=== PATIENT | female | born 1960 | race Caucasian/White ===

== ENCOUNTER 2016-09-09 04:57 | Inpatient (IN) | payer OTHER ==
--- NOTE | ~2016-09-09 | DS ---
Discharge Summary [facility] [address] [place]. [address] NAME: VICENTE MARROQUIN : 64 STATUS : DIS IN PAT#: [id number] AGE: 56 ADM/REG DATE : 09/09/16 MR#: [id number] REPORT SERV DATE: 09/15/16 DICTATED BY: LARRY BRONSON DATE: 09/15/16 REPORT STATUS : Draft TRANSCRIBED BY: MODL DATE: 09/15/16 ADMISSION DATE: 09/09/2016 DISCHARGE DATE: 09/15/2016 FINAL HOSPITAL DIAGNOSES: Right upper lobe pneumonia, suspect postobstructive pharyngitis, resolved; chronic kidney disease, stable; anemia; secondary to chronic kidney disease; hypertension; and schizophrenia. CONSULTATIONS: Pulmonary, Dr. Noe. PROCEDURES: As listed on interim summary with the addition of CT of the chest done on 09/13/2016, without contrast showing a mass in the apex, soft tissue mass anterior to the right pulmonary artery, with complete collapse of the anterior segment of the right upper lobe, some air bronchograms are present in the posterior segment. CURRENT PHYSICAL FINDINGS AND HISTORY OF PRESENT ILLNESS: Please see initial dictated H and P, as well as discharge summary by myself on 09/13/2016. This is an addendum to that dictation. The patient was to be discharged on 09/13/2016, however, followup chest x-ray showed no improvement of the right upper lobe pneumonia. Discharge was canceled and the patient was scheduled for a CT scan with the above findings noted. When it appeared the patient had an obstructive mass, Pulmonary was consulted, and Dr. Noe saw the patient on 09/14/2016, and was arranging a bronchoscopy with biopsy. I was notified on the morning of 09/15/2016, that the patient wished to leave and not wait on her procedure. I had a long talk with her in the presence of her nurse and could not convince her to stay for appropriate evaluation, I in no uncertain terms explained to her that there was a very high probability that this was an obstructive mass, there was a very high probability with her smoking history that it could be a cancerous neoplasm, and that further treatment beyond initial diagnosis was most likely needed. I also discussed with her the postobstructive nature and the high probability that her pneumonia would recur off antibiotics. Given this information, the patient was still unwilling to stay. She was pleasant and cooperative, but just did not want to stay. I discussed her situation with Lan Nixon, who identifies himself as her uncle, whom she will be staying with. His contact #[phone]. I explained also to him the high probability of her diagnoses, the need for appropriate followup, and the consequences of not treating, he voiced understanding. He stated he had no further questions and would assist her in getting appointments and appropriate followup, but he concurred with her ability to make the decision to leave, although, she does carry diagnosis of schizophrenia. The patient has not been combative, confused, shown any hallucinatory behavior, and I do feel she is competent to make whatever decision she chooses. However, since she is leaving in this manner, she was asked to sign out AMA which she agreed to do. To hopefully assist her in getting her appropriate follow up. I spoke to Dr. Noe, who will have his office contact her on Saturday at the above number to try and set up an outpatient bronchoscopy. Prescriptions were written 40, 20, 10 q.2 day prednisone taper, prescription for albuterol inhaler one puff t.i.d., iron 300 b.i.d., sodium bicarb 650 t.i.d., and Augmentin 500 b.i.d. to complete a seven-day course. She was not on any home medicines prior to admission. We will ask social worker to continue to assist her in getting out of the hospital. Follow up perhaps at the [facility] on Saturday, the Discharge Summary [address] [address] NAME: VICENTE MARROQUIN : 64 STATUS : DIS IN PAT#: [id number] AGE: 56 ADM/REG DATE : 09/09/16 MR#: [id number] REPORT SERV DATE: 09/15/16 DICTATED BY: LARRY BRONSON DATE: 09/15/16 REPORT STATUS : Draft TRANSCRIBED BY: DANY DATE: 09/15/16 patient had the opportunity to ask any questions, and all were answered to the best of our ability. TLF/RUPALL Larry Bronson M.D. / [id number] CC: Larry Bronson M.D.
--- NOTE | ~2016-09-09 | HP ---
History And Physical [id number] [place]. [address] NAME: VICENTE MARROQUIN : 64 STATUS : ADM Victor Manuel PAT#: [id number] AGE: 56 ADM/REG DATE : 09/09/16 MR#: [id number] REPORT SERV DATE: 09/09/16 DICTATED BY: MORTEZA GODINEZ DATE: 09/09/16 REPORT STATUS : Draft TRANSCRIBED BY: MODL DATE: 09/09/16 DATE OF ADMISSION: 09/09/2016 CHIEF COMPLAINT: Fevers, chills, and sore throat. HISTORY OF PRESENT ILLNESS: This is a 56-year-old lady with history of schizophrenia, hypertension, COPD, chronic kidney disease, and anemia presenting with fever, chills, and sore throat. Please note that the patient has history of schizo and the patient is an extremely poor historian. This H and P were formulated from history obtained from patient as well as from careful review of existing medical records. The patient reports that she has been ill for the past week or so. Especially over the past 2-3 days, the patient started developing sore throat along with cough and shortness of breath. [facility] and from there the patient was brought to the ER for further evaluation and care. In the ER, the patient was found to be afebrile and hemodynamically stable. The patient was actually stable on room air without requiring any additional oxygen. Initial lab evaluation revealed an acute on chronic kidney disease with creatinine of 3.7 whereas her baseline is 3.1. The patient was also found to have a white blood cell count of 16. Urinalysis was negative, but chest x-ray was positive for right upper lobe pneumonia. The patient's strep throat was also positive. The patient apparently also complained of some abdominal pain and nausea. The CT of the abdomen and pelvis was performed and that was negative. Internal Medicine consultation was requested for admission the patient for further evaluation and care. REVIEW OF SYSTEMS: The patient admits to having had fevers with chills. Otherwise, 14-point review of systems reviewed and negative other than mentioned above. MEDICATIONS: None. ALLERGIES: NKDA. PAST MEDICAL HISTORY: 1. 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 2. Hypertension. 3. COPD. 4. Chronic kidney disease with creatinine baseline of 3. 5. Anemia, multifactorial. PAST SURGICAL HISTORY: Bilateral tubal ligation. FAMILY HISTORY: Heart diseases. History And Physical [address] [address] NAME: VICENTE MARROQUIN : 64 STATUS : ADM Victor Manuel PAT#: [id number] AGE: 56 ADM/REG DATE : 09/09/16 MR#: [id number] REPORT SERV DATE: 09/09/16 DICTATED BY: MORTEZA GODINEZ DATE: 09/09/16 REPORT STATUS : Draft TRANSCRIBED BY: DANY DATE: 09/09/16 SOCIAL HISTORY: The patient apparently smokes about one pack per day. The patient otherwise consumes alcohol on occasion. The patient does not use any illicit drugs. The [facility] at [facility]. PHYSICAL EXAMINATION: VITAL SIGNS: Temperature 98.7, blood pressure 137/92, pulse 100, respiratory rate is 18, saturating 98% on room air. CONSTITUTIONAL: On physical exam, the patient is alert and oriented x3 with no focal neurologic deficits. GENERAL: The patient is awake, does not appear to be in acute distress, and she is cooperative. NECK: No JVD. No lymphadenopathy. Normal thyroid. CHEST: No midline sternotomy scar and no tenderness to palpation. LUNGS: Actually fairly clear to auscultation bilaterally. The patient is quite stable on room air with normal respiratory effort. CARDIOVASCULAR: The patient is borderline tachycardic, but otherwise, no murmurs, rubs, or gallops, and PMI is nondisplaced. ABDOMEN: Soft, nontender, with active bowel sounds and no organomegaly. EXTREMITIES: No edema. Normal distal pulses. No calf tenderness. SKIN: Clean, dry, warm, and intact. LABORATORY DATA: Sodium is 144, potassium 5.3, chloride 115, BUN 53, creatinine 3.74, glucose 92, calcium 8.8. White blood cell count is 16.1, hemoglobin 8.0, platelets 664.. Lactate was 0.6. LFTs are benign. Urinalysis was negative other than trace leukocyte esterase. Strep throat was actually positive. Chest x-ray shows a potential right upper lobe pneumonia. CT of the abdomen and pelvis was nonacute. ASSESSMENT: This is a 56-year-old lady with history of schizophrenia, hypertension, COPD, chronic kidney disease, amongst many other medical conditions, presenting with a strep throat as well as possible community-acquired pneumonia. 1. Strep throat. 2. Community-acquired pneumonia. 3. Schizophrenia. 4. Smoking. 5. Acute kidney injury on chronic kidney disease. 6. Hypertension. 7. COPD. 8. Anemia. PLAN: The plan is to admit the patient under telemetry monitoring. The patient will be given oxygen support and bronchodilator therapy. The patient will be empirically treated with Rocephin and Zithromax. The patient will also be given IV fluid resuscitation. In's and out's electrolytes, and renal function will be closely monitored as the patient is given fluid resuscitation. For smoking cessation, counseling was provided. Otherwise, for the rest of stable past medical conditions, including hypertension, schizophrenia, anemia et al, I will continue to monitor patient and treat as needed. Of note, the patient has not been on any medications at least for over the past year or so. Standard DVT prophylaxis. The History And Physical [address] [address] NAME: VICENTE MARROQUIN : 64 STATUS : ADM Victor Manuel PAT#: [id number] AGE: 56 ADM/REG DATE : 09/09/16 MR#: [id number] REPORT SERV DATE: 09/09/16 DICTATED BY: MORTEZA GODINEZ DATE: 09/09/16 REPORT STATUS : Draft TRANSCRIBED BY: DANY DATE: 09/09/16 patient is full code at this time. The patient does have a PCP to forward this H and P. Francine/DANY Morteza Godinez MD / [id number]
--- NOTE | ~2016-09-09 | CN ---
Consultation Report [facility] [address]. [address] NAME: VICENTE MARROQUIN : 64 STATUS : ADM IN [facility]#: [id number] AGE: 56 ADM/REG DATE : 09/09/16 MR#: [id number] REPORT SERV DATE: 09/14/16 DICTATED BY: PAVAN DENTON DATE: 09/14/16 REPORT STATUS : Draft TRANSCRIBED BY: MODHanh DATE: 09/14/16 CONSULTATION REPORT DATE OF CONSULTATION: Dear Dr. Yates: Thank you for requesting my opinion regarding evaluation and management of Ms Marroquin's right upper lobe lung mass. Ms Marroquin is a 56-year-old female who is homeless with a significant past medical history of schizophrenia, hypertension, COPD, chronic kidney disease, and anemia who originally admitted to [facility] on 09/09/2016. The patient was treated with antibiotic therapy including Rocephin and azithromycin and subsequent CT scan of the chest without contrast was performed on 09/14/2016, which demonstrates right upper lobe lung mass with a right hilar lung mass as well, right apical lung mass with a right hilar local regional mediastinal metastases, and postobstructive pneumonia. The patient states that she has significantly improved while an inpatient, but we have been asked to evaluate her for possible biopsy. The patient states that she has currently [id number] shortness of breath, well localized to the chest, nonradiating with no significant alleviating or exacerbating factors. ALLERGIES: NO KNOWN DRUG ALLERGIES. HOME MEDICATIONS: None. PAST MEDICAL HISTORY: 1. Schizophrenia. 2. Hypertension. 3. COPD. 4. Chronic kidney disease with baseline creatinine of 3. 5. Anemia, multifactorial. PAST SURGICAL HISTORY: Bilateral tubal ligation. FAMILY HISTORY: Heart disease. SOCIAL HISTORY: The patient smokes one pack per day for many years. She denies any significant alcohol or illicit drug abuse. [facility] at [facility]. PHYSICAL EXAMINATION: VITAL SIGNS: Afebrile, T-current of 98.2, pulse of 88, respiratory rate 18, 99%, and blood pressure 153/71. GENERAL: In no acute distress and able to communicate in full paragraphs at a time. HEENT: Normocephalic and atraumatic. Pupils are equal, round, and reactive to light and Consultation Report [facility] [address] [place]. [address] NAME: VICENTE MARROQUIN : 64 STATUS : ADM IN PAT#: [id number] AGE: 56 ADM/REG DATE : 09/09/16 MR#: [id number] REPORT SERV DATE: 09/14/16 DICTATED BY: PAVAN DENTON DATE: 09/14/16 REPORT STATUS : Draft TRANSCRIBED BY: MODL DATE: 09/14/16 accommodation. Posterior oropharynx is clear. NECK: No JVD. No LAD. Trachea midline. CARDIOVASCULAR: Regular rate and rhythm. S1 and S2 present. LUNGS: Diminished breath sounds at the right upper lobe and end-expiratory wheezes noted bilaterally. ABDOMEN: Nontender, nondistended, and soft. Positive bowel sounds. EXTREMITIES: No clubbing, cyanosis, or edema. SKIN: No new rashes, lesions, or ulcers. PSYCHIATRIC: Alert and oriented x3. Appropriate mood and affect. Appropriate insight and judgment. NEUROLOGIC: 5/5 strength in upper and lower extremities. Cranial nerves II through XII are intact. Gait not tested. DTRs not performed. LABORATORY DATA: The patient demonstrated white count of 12, hemoglobin of 8, and platelet count of 638. Chemistries demonstrated creatinine of 2.97. Negative microbiologic studies. IMAGING: Chest CT without contrast on 09/13/2016 was personally reviewed by me and I agree with the following interpretation, likely right upper lobe lung mass, right hilar mediastinal lymphadenopathy, highly suspicious for primary bronchogenic carcinoma and postobstructive pneumonia. ASSESSMENT AND PLAN: Ms Marroquin is a pleasant 56-year-old female who is homeless with a significant past medical history of heavy tobacco abuse, who presented with sore throat, fevers, chills, and was found to have on CT scan, however, large right upper lobe lung mass and right hilar adenopathy with a postobstructive pneumonia. The clinical and radiographic presentation is most consistent with multifactorial shortness of breath: 1. Concerning right upper lobe lung mass and right hilar adenopathy, most likely representing advanced stage primary bronchogenic carcinoma. 2. Postobstructive pneumonia. 3. Chronic obstructive pulmonary disease. 4. Active tobacco abuse. At this point, Ms Marroquin needs an appropriate diagnostic intervention. We discussed in detail potential options including EBUS and navigation by bronchoscopy, CT-guided needle biopsy, or thoracic surgical intervention. After careful discussion of the risks, benefits, and alternatives to each of these procedures, we agreed to proceed forward with EBUS bronchoscopy. However, I will not be on the service on Saturday when Dr. Devlin will be assuming the service. We will discuss options for biopsy and I will defer final decision to him. Thank you for allowing me to participate in Ms Marroquin's care. KB/DANY Consultation Report [address] [place]. [address] NAME: VICENTE MARROQUIN : 64 STATUS : ADM IN PAT#: [id number] AGE: 56 ADM/REG DATE : 09/09/16 MR#: [id number] REPORT SERV DATE: 09/14/16 DICTATED BY: PAVAN DENTON DATE: 09/14/16 REPORT STATUS : Draft TRANSCRIBED BY: DANY DATE: 09/14/16 Pavan Denton M.D. / [id number] CC: Juice Yates M.D.
--- NOTE | ~2016-09-09 | DS ---
Discharge Summary [facility] [address] [place]. [address] NAME: VICENTE MARROQUIN : 64 STATUS : ADM IN [facility]#: [id number] AGE: 56 ADM/REG DATE : 09/09/16 MR#: [id number] REPORT SERV DATE: 09/13/16 DICTATED BY: LARRY BRONSON DATE: 09/13/16 REPORT STATUS : Draft TRANSCRIBED BY: MODL DATE: 09/13/16 ADMISSION DATE: 09/09/2016 DISCHARGE DATE: 09/13/2016 FINAL HOSPITAL DIAGNOSES: 1. Right upper lobe pneumonia. 2. Pharyngitis. 3. Chronic kidney disease. 4. Anemia, secondary to chronic kidney disease. 5. Hypertension. 6. Schizophrenia. CONSULTATIONS: None. PROCEDURES: 1. TB test, PPD which was negative. 2. CT of the abdomen and pelvis done on 09/09/2016, showing no acute abnormality, scattered calcifications throughout the kidneys, not in the collecting system consistent with medical renal disease. No hydronephrosis. CURRENT PHYSICAL FINDINGS AND HISTORY OF PRESENT ILLNESS: Please see initial dictated H and P by Dr. Benson. In brief, the patient is a 56-year-old female, who presented with complaint of fevers, chills, and sore throat. Vital signs at time of admission, BP was 137/92. She has averaged 130s to 140s/70s. She had no fever at presentation, her T-max here has been 99.1, heart rates have been in the 80s, she has not required supplemental O2. LABORATORY DATA: Laboratory at the time of admission, creatinine was 3.74 with rehydration, and creatinine on the date of admission was 2.7, per her old records was from 2013 to 2015, it appears her baseline creatinine is between 3 and 4. No associated hyperkalemia. Her procalcitonin was 0.66. She did have some low bicarb dropping as low as 14 on her lab work, this responded with IV and p.o. replacement. Initial LFTs were slightly elevated with AST and ALT being 95 and 80 respectively, repeat were 39 and 54, and no significant abnormalities were noted on her CT, and lab work showed an iron deficiency with an iron of 13 and sat of 9%. However stool for occult blood x1 was negative. Hepatitis panel was nonreactive. Initial white count was 16,000, subsequent on 09/10/2016 were 13, and on 09/11/2016 12.4. Per her previous numbers from 2013 and 2015, it appears her baseline hemoglobin is approximately 8.5. She did have a 6.8 hemoglobin here on 09/10/2016, which was corrected with transfusion x1 unit packed cells. Legionella was negative and UA was negative. Urine chemistry was negative. Blood cultures are negative at four days. Throat culture was positive for strep. Sputum cultures have been poor quality. Chest x-ray showed a right upper lobe atelectasis versus infiltrate. HOSPITAL COURSE: The patient was admitted for pharyngitis, pneumonia, anemia, and chronic kidney disease. She was placed on Rocephin and Zithromax. IV fluids were given. The above labs and tests were done. She did not have any signs or symptoms of hypoxia or significant respiratory distress. Because of her homeless situation and upper lobe predominance a PPD Discharge Summary [address] [address] NAME: VICENTE MARROQUIN : 64 STATUS : ADM IN [facility]#: [id number] AGE: 56 ADM/REG DATE : 09/09/16 MR#: [id number] REPORT SERV DATE: 09/13/16 DICTATED BY: LARRY BRONSON DATE: 09/13/16 REPORT STATUS : Draft TRANSCRIBED BY: DANY DATE: 09/13/16 was done which was read by myself and negative. Sputum x3 were requested for AFB, but I believe it was not done due to the poor quality, but her PPD was negative. She did receive the one unit transfusion on 09/10/2016 without any difficulty or reaction. party planner was consulted for assistance which she is agreeable to. She was placed on p.o. bicarb on 09/10/2016. I took over her care on 09/11/2016. She was placed on p.o. iron. She was given some IV bicarb with some marked improvement in her bicarbonate numbers. She continued to do well on 09/12/2016 without any new problems. On reassessment on 09/13/2016, we will repeat her chest x-ray, if this shows improvement, she will be discharge. DISPOSITION: Discharge pending her x-ray. MEDICATIONS: She was given Augmentin 500 b.i.d. at the reduced renal doses for an additional three days to complete a seven-day course of treatment for the possible pneumonia and pharyngitis. She was given a prescription for iron b.i.d. and bicarb b.i.d. We will ask discharge planning to assist her with followup in the [facility]. She will need monitoring of her chronic anemia and chronic kidney disease. She is to return for any recurrent symptoms. DAI/DANY Larry Bronson M.D. / [id number] CC: Larry Bronson M.D.
[2016-09-09 02:05] LABS: BASOPHILS 0.2 %; BASOPHILS ABSOLUTE 0.04 10/3/uL (0.0-0.16); EOSINOPHILS 2.2 %; EOSINOPHILS ABSOLUTE 0.36 10/3/uL (0.0-0.53); HEMATOCRIT 25.6 % (36.0-48.0); IMMATURE GRANULOCYTES 1.5 %; IMMATURE GRANULOCYTES ABSOLUTE 0.24 10/3/uL (0.0-0.11); LYMPHOCYTES ABSOLUTE 1.12 10/3/uL (0.67-4.30); MANUAL DIFF NO %; MEAN CORPUS HGB CONC 31.3 g/dL (32.0-36.0); MEAN CORPUSCULAR HEMOGLOB 28.6 pg (26.0-34.0); MEAN CORPUSCULAR VOLUME 91.4 fL (80-100); MEAN PLATELET VOLUME 9.9 fL (9.2-13.0); MONOCYTES 4.9 %; MONOCYTES ABSOLUTE 0.78 10/3/uL (0.21-1.20); NEUTROPHILS 84.2 %; NEUTROPHILS ABSOLUTE 13.53 10/3/uL (2.02-8.40); PLATELET COUNT 664 10/3/uL (150-400); RBC DISTRIBUTION WIDTH 14.9 % (12.0-16.0); WHITE BLOOD CELLS 16.1 10/3/uL (4.5-10.5)
[2016-09-09 02:08] LABS: ASCORBIC ACID (UR NOT ORDER) NEG (NEG); BILIRUBIN, URINE NEGATIVE (NEG); ER URINALYSIS TAT 0 Hrs 07 Mins; KETONE, URINE NEGATIVE (NEG); LEUKOCYTE ESTERASE(NOT OR TRACE (NEG); NITRITE (URINE) NEG (NEG); WBC (NOT ORDERED) (RFLEX) 2 (0-5)
[2016-09-09 02:29] LABS: CALCIUM, SERUM 8.8 MG/DL (8.5-10.4); CHLORIDE, SERUM 115 MMOL/L (96-112); CO2 (CARBON DIOXIDE) 18 MMOL/L (24-34); GLUCOSE, SERUM 92 MG/DL (60-99); SGOT(AST) 95 U/L (5-40); SGPT(ALT) 80 U/L (5-65); SODIUM, SERUM 144 MMOL/L (135-148); TOTAL BILIRUBIN 0.3 MG/DL (0-1.2); TOTAL PROTEIN 7.3 G/DL (6.0-8.5)
[2016-09-09 02:33] LABS: A/G RATIO 0.4 (0.7-1.9); ALKALINE PHOSPHATASE 248 U/L (45-117); BUN (BLOOD UREA NITROGEN) 53 MG/DL (6-23); CREATININE 3.74 MG/DL (0.55-1.02); GFR AFRICAN AMERICAN 15 ML/MIN (>=60); GFR NON AFRICAN AMERICAN 13 ML/MIN (>=60); GLOBULIN 5.3 G/DL (2.5-4.1); POTASSIUM, SERUM 5.3 MMOL/L (3.5-5.3)
[2016-09-09 04:04] LABS: LACTATE 0.6 MMOL/L (0.3-2.4)
[~2016-09-09 04:57] MED LIST: AMILORID5B PO; CEFT2 PO; COG2 PO; ESKALITH PO; NEUR300 PO; NORV10 PO; POOR HISTORIAN; RISP3 PO; SEROQUEL1C PO; SEROQUEL400 MG PO; SODBICAR10 PO
[2016-09-09 09:38] LABS: PROCALCITONIN 0.66 ng/mL (<0.5)
[2016-09-09 10:19] LABS: AMPHETAMINES (NOT ORD) NEG (NEG); BARBITURATES (NOT ORDERED NEG (NEG); BENZODIAZEPINES (NOT ORD) NEG (NEG); CANNABINOIDS (THC) NEG (NEG); COCAINE (NOT ORDERED) NEG (NEG); OPIATES NEG (NEG); PHENCYCLIDINE(PCP) NEG (NEG); TRICYCLICS NEG (NEG)
[2016-09-10 05:41] LABS: % IRON SAT 9 % (20-50); A/G RATIO 0.3 (0.7-1.9); ALBUMIN 1.6 G/DL (3.5-5.0); CALCIUM, SERUM 8.5 MG/DL (8.5-10.4); CHLORIDE, SERUM 117 MMOL/L (96-112); CO2 (CARBON DIOXIDE) 16 MMOL/L (24-34); FERRITIN 337 NG/ML (8-252); GLOBULIN 4.9 G/DL (2.5-4.1); GLUCOSE, SERUM 103 MG/DL (60-99); IRON BINDING CAPACITY 139 MCG/DL (225-410); IRON, SERUM 13 MCG/DL (35-150); POTASSIUM, SERUM 4.9 MMOL/L (3.5-5.3); SGOT(AST) 39 U/L (5-40); SGPT(ALT) 54 U/L (5-65); SODIUM, SERUM 142 MMOL/L (135-148); TOTAL BILIRUBIN 0.4 MG/DL (0-1.2); TOTAL PROTEIN 6.5 G/DL (6.0-8.5)
[2016-09-10 05:42] LABS: BASOPHILS 0.2 %; BASOPHILS ABSOLUTE 0.03 10/3/uL (0.0-0.16); EOSINOPHILS ABSOLUTE 0.27 10/3/uL (0.0-0.53); IMMATURE GRANULOCYTES 1.6 %; IMMATURE GRANULOCYTES ABSOLUTE 0.22 10/3/uL (0.0-0.11); LYMPHOCYTES ABSOLUTE 1.08 10/3/uL (0.67-4.30); MEAN CORPUS HGB CONC 30.2 g/dL (32.0-36.0); MEAN CORPUSCULAR HEMOGLOB 27.3 pg (26.0-34.0); MEAN CORPUSCULAR VOLUME 90.4 fL (80-100); MEAN PLATELET VOLUME 9.3 fL (9.2-13.0); MONOCYTES 6.2 %; MONOCYTES ABSOLUTE 0.83 10/3/uL (0.21-1.20); NEUTROPHILS ABSOLUTE 10.99 10/3/uL (2.02-8.40); PLATELET COUNT 605 10/3/uL (150-400); RBC DISTRIBUTION WIDTH 15.3 % (12.0-16.0); RED CELL COUNT 2.49 10/6/uL (4.0-5.6); WHITE BLOOD CELLS 13.4 10/3/uL (4.5-10.5)
[2016-09-10 05:43] LABS: ALKALINE PHOSPHATASE 211 U/L (45-117); BUN (BLOOD UREA NITROGEN) 43 MG/DL (6-23); CREATININE 3.24 MG/DL (0.55-1.02); GFR AFRICAN AMERICAN 18 ML/MIN (>=60); GFR NON AFRICAN AMERICAN 15 ML/MIN (>=60); HEMATOCRIT 22.5 % (36.0-48.0); HEMOGLOBIN 6.8 g/dL (12.0-16.0)
[2016-09-10 05:44] LABS: MANUAL DIFF NO %
[2016-09-10 08:45] LABS: HEPATITIS B SURFACE ANTIGEN NON-REACTIVE (NON-REACT)
[2016-09-10 09:05] LABS: HEPATITIS C ANTIBODY NON-REACTIVE (NON-REACT)
[2016-09-10 09:06] LABS: HEPATITIS B CORE AB IGM NON-REACTIVE (NON-REAC)
[2016-09-10 09:08] LABS: HEP A ANTIBODY IGM NON-REACTIVE (NON-REACT)
[2016-09-10 11:49] LABS: BE (BASE EXCESS) -11.7 MEQ/L (0 +/- 2.5); CARBOXYHEMOGLOBIN 0.6 % (0-3); HCO3 (ACTUAL BICARBONATE) 13.9 MEQ/L (23-27); HEMOBLOGIN CONTENT 8.7 G/DL (12-16); INSTRUMENT SERIAL # 8083; METHEMOGLOBIN 0.2 % (0-3); O2 CONTENT 11.9 VOL% (18-24); PCO2 (CO2 TENSION) 30 MMHG (35-45); PO2 (O2 TENSION) 89 MMHG (79-93); SAMPLE Arterial; pH 7.28 (7.37-7.43)
[2016-09-11 05:29] LABS: BASOPHILS 0.3 %; BASOPHILS ABSOLUTE 0.04 10/3/uL (0.0-0.16); EOSINOPHILS 2.1 %; EOSINOPHILS ABSOLUTE 0.26 10/3/uL (0.0-0.53); HEMATOCRIT 26.8 % (36.0-48.0); HEMOGLOBIN 8.5 g/dL (12.0-16.0); IMMATURE GRANULOCYTES ABSOLUTE 0.25 10/3/uL (0.0-0.11); LYMPHOCYTES 7.3 %; MEAN CORPUS HGB CONC 31.7 g/dL (32.0-36.0); MEAN CORPUSCULAR HEMOGLOB 28.6 pg (26.0-34.0); MEAN CORPUSCULAR VOLUME 90.2 fL (80-100); MEAN PLATELET VOLUME 9.4 fL (9.2-13.0); MONOCYTES 8.6 %; MONOCYTES ABSOLUTE 1.07 10/3/uL (0.21-1.20); NEUTROPHILS 79.7 %; NEUTROPHILS ABSOLUTE 9.86 10/3/uL (2.02-8.40); PLATELET COUNT 638 10/3/uL (150-400); RBC DISTRIBUTION WIDTH 15.6 % (12.0-16.0); RED CELL COUNT 2.97 10/6/uL (4.0-5.6); WHITE BLOOD CELLS 12.4 10/3/uL (4.5-10.5)
[2016-09-11 05:30] LABS: MANUAL DIFF NO %; RETICULOCYTE COUNT 1.2 % (0.5-2.9); RETICULOCYTE COUNT ABSOLUTE 34.3 10/3/uL (20.2-119.8)
[2016-09-11 06:00] LABS: CALCIUM, SERUM 8.8 MG/DL (8.5-10.4); CHLORIDE, SERUM 116 MMOL/L (96-112); CREATININE 3.16 MG/DL (0.55-1.02); GFR AFRICAN AMERICAN 18 ML/MIN (>=60); GFR NON AFRICAN AMERICAN 16 ML/MIN (>=60); GLUCOSE, SERUM 110 MG/DL (60-99); POTASSIUM, SERUM 4.7 MMOL/L (3.5-5.3); SODIUM, SERUM 142 MMOL/L (135-148)
[2016-09-11 06:01] LABS: BUN (BLOOD UREA NITROGEN) 37 MG/DL (6-23); CO2 (CARBON DIOXIDE) 14 MMOL/L (24-34); PHOSPHORUS, SERUM 4.9 MG/DL (2.5-4.5)
[2016-09-12 06:38] LABS: BUN (BLOOD UREA NITROGEN) 33 MG/DL (6-23); CALCIUM, SERUM 8.4 MG/DL (8.5-10.4); CHLORIDE, SERUM 114 MMOL/L (96-112); CO2 (CARBON DIOXIDE) 19 MMOL/L (24-34); CREATININE 2.87 MG/DL (0.55-1.02); GFR AFRICAN AMERICAN 21 ML/MIN (>=60); GFR NON AFRICAN AMERICAN 18 ML/MIN (>=60); GLUCOSE, SERUM 88 MG/DL (60-99); POTASSIUM, SERUM 4.7 MMOL/L (3.5-5.3); SODIUM, SERUM 145 MMOL/L (135-148)
[2016-09-13 07:36] LABS: CALCIUM, SERUM 8.5 MG/DL (8.5-10.4); CHLORIDE, SERUM 113 MMOL/L (96-112); CO2 (CARBON DIOXIDE) 22 MMOL/L (24-34); CREATININE 2.74 MG/DL (0.55-1.02); GFR AFRICAN AMERICAN 22 ML/MIN (>=60); GFR NON AFRICAN AMERICAN 19 ML/MIN (>=60); GLUCOSE, SERUM 100 MG/DL (60-99); SODIUM, SERUM 143 MMOL/L (135-148)
[2016-09-13 07:38] LABS: BUN (BLOOD UREA NITROGEN) 29 MG/DL (6-23); POTASSIUM, SERUM 4.9 MMOL/L (3.5-5.3)
[2016-09-14 08:44] LABS: BUN (BLOOD UREA NITROGEN) 32 MG/DL (6-23); CALCIUM, SERUM 8.8 MG/DL (8.5-10.4); CHLORIDE, SERUM 111 MMOL/L (96-112); CO2 (CARBON DIOXIDE) 22 MMOL/L (24-34); CREATININE 2.97 MG/DL (0.55-1.02); GFR AFRICAN AMERICAN 20 ML/MIN (>=60); GFR NON AFRICAN AMERICAN 17 ML/MIN (>=60); GLUCOSE, SERUM 88 MG/DL (60-99); POTASSIUM, SERUM 4.9 MMOL/L (3.5-5.3); SODIUM, SERUM 143 MMOL/L (135-148)
[2016-09-14 17:38] LABS: BASOPHILS 0.5 %; BASOPHILS ABSOLUTE 0.05 10/3/uL (0.0-0.16); EOSINOPHILS 2.1 %; EOSINOPHILS ABSOLUTE 0.22 10/3/uL (0.0-0.53); HEMATOCRIT 27.8 % (36.0-48.0); HEMOGLOBIN 8.7 g/dL (12.0-16.0); IMMATURE GRANULOCYTES 0.8 %; IMMATURE GRANULOCYTES ABSOLUTE 0.09 10/3/uL (0.0-0.11); LYMPHOCYTES 11.3 %; MEAN CORPUS HGB CONC 31.3 g/dL (32.0-36.0); MEAN CORPUSCULAR HEMOGLOB 28.5 pg (26.0-34.0); MEAN CORPUSCULAR VOLUME 91.1 fL (80-100); MEAN PLATELET VOLUME 9.2 fL (9.2-13.0); MONOCYTES 7.1 %; MONOCYTES ABSOLUTE 0.75 10/3/uL (0.21-1.20); NEUTROPHILS 78.2 %; NEUTROPHILS ABSOLUTE 8.31 10/3/uL (2.02-8.40); PLATELET COUNT 672 10/3/uL (150-400); RBC DISTRIBUTION WIDTH 14.8 % (12.0-16.0); RED CELL COUNT 3.05 10/6/uL (4.0-5.6); WHITE BLOOD CELLS 10.6 10/3/uL (4.5-10.5)
[2016-09-14 17:39] LABS: MANUAL DIFF NO %
[2017-02-16] MEDS ORDERED: PR25 PO (15:14)
[2017-02-16] MEDS ORDERED: NORV5 PO (15:14)
[2017-02-16] MEDS ORDERED: PROVHFA INH (15:14)
[2017-02-16] MEDS ORDERED: MUCINEX (15:15)
[2017-02-16] MEDS ORDERED: SUDAFED PO (15:15)
[2017-02-16] MEDS ORDERED: ASABAYER PO (15:15)
== END 2016-09-15 09:54 | disposition left against medical advice (07) | DRG 180 ==
LOC: ER 04:57 → 4SO 05:18
PROVIDERS: Internal Medicine; Specialist
PROC: 30233N1 Transfusion of Nonautologous Red Blood Cells into Peripheral Vein, Percutaneous Approach (ICD-10-PCS; principal; 2016-09-10)
DX: C34.11 Malignant neoplasm of upper lobe, right bronchus or lung (principal); J18.1 Lobar pneumonia, unspecified organism; C77.1 Secondary and unspecified malignant neoplasm of intrathoracic lymph nodes; N17.9 Acute kidney failure, unspecified; J44.0 Chronic obstructive pulmonary disease with (acute) lower respiratory infection; F20.9 Schizophrenia, unspecified; N18.4 Chronic kidney disease, stage 4 (severe); J02.0 Streptococcal pharyngitis; J44.1 Chronic obstructive pulmonary disease with (acute) exacerbation; I12.9 Hypertensive chronic kidney disease with stage 1 through stage 4 chronic kidney disease, or unspecified chronic kidney disease; F17.210 Nicotine dependence, cigarettes, uncomplicated; Z59.0 Homelessness; D63.1 Anemia in chronic kidney disease; Z72.89 Other problems related to lifestyle
CPT/HCPCS: 36415; 36600; 71010; 71020; 71250; 74176; 80048; 80053; 80074; 80305; 81001; 82272; 82607; 82728; 82805; 83540; 83550; 83605; 83690; 83735; 84100; 84145; 85025; 85045; 86850; 86900; 86901; 86920; 87015; 87040; 87070; 87116; 87205; 87449; 87880; 93005; 94640; 96365; 96375; 99285; A9270-GY; J0456; J2405; J2920; P9016